=== PATIENT | female | born 1970 | race Caucasian/White ===

== ENCOUNTER 2017-06-01 12:21 | Outpatient (CLI) | payer OTHER ==
--- NOTE | 2017-06-01 13:08 | RAD ---
LEFT ANKLE THREE VIEWS: History: 47-year-old female with history of left ankle pain after fall off porch one day ago. FINDINGS: Focal anterior soft tissue swelling. No evidence for acute fracture or dislocation. Calcaneal plantar enthesophyte. IMPRESSION: No fracture or dislocation. Focal anterior soft tissue swelling. Calcaneal plantar enthesophyte. POS: KORIN
--- NOTE | 2017-06-01 13:10 | RAD ---
AP AND LATERAL LEFT TIBIA AND FIBULA: History: Left leg pain, fell off porch yesterday. FINDINGS: Images demonstrate an area of displaced radial lucency through the lateral tibial plateau extending i nto the articular surface of the lateral portion proximal left tibia. The rest of the left tibia and fibula is unremarkable. IMPRESSION: Lateral aspect tibial plateau fracture. There does appear to be some inferior displacement of the lat eral tibial plateau. Please seen left knee report. POS: NICO
--- NOTE | 2017-06-01 13:11 | RAD ---
LEFT KNEE THREE VIEWS: History: Left knee pain, fell off porch. FINDINGS/IMPRESSION: There is a mildly displaced fracture involving the lateral tibial plateau. A joint effusion is presen t. POS: C
== END 2017-06-01 12:22 | disposition home or self-care (01) ==
LOC: MADRAD 12:21
PROVIDERS: ATTEND Family Medicine
DX: M25.562 Pain in left knee (principal); M25.572 Pain in left ankle and joints of left foot; M79.605 Pain in left leg; S82.202A Unspecified fracture of shaft of left tibia, initial encounter for closed fracture; M25.472 Effusion, left ankle